=== PATIENT | female | born 1955 | race Caucasian/White ===

== ENCOUNTER → 2016-12-03 | Outpatient (CLI) | payer BC ==
--- NOTE | 2016-12-03 14:49 | CTL ---
EXAMINATION TYPE: CT Low Dose Lung DATE OF EXAM ORDERED: 12/03/2016 1:07 PM COMPARISON: CT chest March 28, 2011. HISTORY: Long-term tobacco use. Lung cancer screening CT DLP: 51.[address] CTDI: 1.5 mGy Automated exposure control for dose reduction was used. SCREENING VISIT: Initial screening study TECHNIQUE: Low dose computed tomography scan was performed through the chest at 1 mm thick sections a nd reconstructed images in the coronal plane at [address] DIAGNOSTIC QUALITY: Satisfactory FINDINGS: LUNG NODULES: None. LUNGS: COPD: Severity: Mild to borderline moderate Fibrosis: Severity: Mild to moderate focal linear scarring in the right lower lobe most pronounced po steriorly with progression from prior study. Lymph nodes: None Other findings: No acute pulmonary process BILATERAL PLEURAL SPACE: Effusion: None Calcification: None Thickening: None Pneumothorax: None HEART: Heart Size: Normal Coronary calcification: None Pericardial effusion: None OTHER FINDINGS: Upper abdomen: There are occasional calcifications are scattered throughout the spleen presumed produ ct of old granulomatous disease. Bony thorax: Mild multilevel spurring in the thoracic spine is present. Supraclavicular region: No significant abnormality is seen. Other: Thoracic aorta is unremarkable. IMPRESSION: No suspicious parenchymal nodules identified. FOLLOW UP CT CHEST RECOMMENDATION: Annual low-dose lung screening CT CT LUNG RAD: Lung-Rad 1 Negative
== END | disposition home or self-care (01) ==
LOC: RADCTMAIN 12:34
PROVIDERS: ATTEND Family Medicine
DX: Z12.2 Encounter for screening for malignant neoplasm of respiratory organs (principal); Z87.891 Personal history of nicotine dependence